=== PATIENT | female | born 1985 ===

== ENCOUNTER 2019-08-15 20:29 | Emergency (ER) | payer MEDICAID ==
--- NOTE | 2019-08-15 21:16 | Event Note ---
ED Screening Note ED Screening Note: fever chills- x 1 day sore throat headache cough hs rx allergy shots neuvaring yvette pmh neuropathy allergies neuro appnt 08/29 lmp 07/19 This initial assessment/diagnostic orders/clinical plan/treatment(s) is/are subject to change based on patients health status, clinical progression and re-assessment by fellow clinical providers in the ED. Further treatment and workup at subsequent clinical providers discretion. Patient/guardian urged not to elope from the ED as their condition may be serious if not clinically assessed and managed. Initial orders include: reeval in ACC HR 100-110 in triage
[2019-08-15] MEDS ORDERED: IBUPROFEN 800 MG TAB PO ONE (21:18)
[2019-08-15] MEDS ORDERED: ONDANSETRON 4 MG/2 ML INJ IV ONE (22:34)
[2019-08-15] MEDS ORDERED: MECLIZINE 25 MG TAB PO ONE (22:34)
[2019-08-15 22:49] LABS: HCG Qualitative,Urine Negative (Negative)
[2019-08-15 23:02] LABS: Bacteria,Urine 1+ /HPF (Negative); Bilirubin,Urine NEG (Negative); Blood,Urine MOD (Negative); Color,Urine Yellow (Yellow); Mucus,Urine 3+ /HPF; Protein,Urine <15 mg/dL mg/dL (Negative); Urobilinogen,Urine < 2.0 mg/dL (<2.0)
[2019-08-15 23:19] LABS: Basophils # (Auto) 0.1 K/mm3 (0.0-0.1); Basophils % (Auto) 0.9 % (0.0-1.8); Eosinophils % (Auto) 0.2 % (0.0-4.3); Hematocrit 37.5 % (30.3-42.9); Hemoglobin 12.9 gm/dl (10.1-14.3); Lymphocytes # (Auto) 1.7 K/mm3 (1.2-5.4); Lymphocytes % (Auto) 26.5 % (13.4-35.0); Mean Corpuscular HGB Conc 34 % (30-34); Mean Corpuscular Volume 86 fl (79-97); Monocytes # (Auto) 0.4 K/mm3 (0.0-0.8); Monocytes % (Auto) 6.4 % (0.0-7.3); Platelet Count 385 K/mm3 (140-440); Red Blood Count 4.36 M/mm3 (3.65-5.03); Red Cell Distribution Width 13.2 % (13.2-15.2)
--- NOTE | 2019-08-15 23:33 | XRay Report ---
CHEST 2 VIEWS, 08/15/2019 11:03 PM INDICATION: Cough COMPARISON: None FINDINGS: Support devices: None Heart: The cardiac silhouette is normal in size. Lungs/pleura: The lungs are well expanded and appear clear of airspace disease or significant pleural effusion. Additional findings: Evaluation of bony structures demonstrates no evidence of acute bony abnormality . IMPRESSION: 1. No evidence of acute cardiopulmonary process. Signer Name: Ritu Caal MD Signed: 08/15/2019 11:29 PM Workstation Name: [id number]
[2019-08-15 23:39] LABS: Alanine Aminotransferase 11 units/L (7-56); Albumin 4.1 g/dL (3.9-5); BUN/Creatinine Ratio 17; Blood Urea Nitrogen 10 mg/dL (7-17); Calcium 9.3 mg/dL (8.4-10.2); Hemolysis Index 0
[2019-08-15 23:46] LABS: Free T4 (Free Thyroxine) 1.19 ng/dL (0.76-1.46)
[2019-08-15 23:54] VITALS: BP 110/62
--- NOTE | 2019-08-16 00:03 | Emergency Department Report ---
ED Dizziness HPI - General Chief Complaint: Dizziness Stated Complaint: FEVER CHILLS DIZZY HEADACHE Time Seen by Provider: 08/15/19 21:12 Source: patient Mode of arrival: Ambulatory Limitations: No Limitations - History of Present Illness Initial Comments: 33-year-old female with a past medical history of neuropathy and previously diagnosed vertigo presents to the Hospital complaining of dizziness, headache, and fever. The last 4-5 days patient has had dizziness described as spinning sensation. Dizzy spells cause her to walk off balance and run into furniture. Positive associated nausea. Patient also having a constant occipital headache that changes in intensity according to hot or cold exposure. Today patient developed nausea, vomiting, fever of 100, and chills. Patient has had ongoing peripheral neuropathy symptoms in April and is scheduled to see a neurologist August 29. Patient did not take her meclizine when symptoms began and states that it feels different from her typical vertigo because usually her vertigo is more severe. She is also having fullness to the left ear for 5 days and noticed a bump behind her left ear. No sick contacts reported - Related Data Previous Rx's Medication Instructions Recorded Last Taken Type Benzonatate [Tessalon Perles] 100 mg PO Q8HR PRN #20 capsule 08/16/19 Unknown Rx Cefdinir 300 mg PO BID #14 capsule 08/16/19 Unknown Rx Ibuprofen [Motrin] 800 mg PO Q8HR PRN #30 tablet 08/16/19 Unknown Rx Meclizine [Antivert] 25 mg PO TID PRN #30 tablet 08/16/19 Unknown Rx Ondansetron [Zofran Odt] 4 mg PO Q8HR PRN #20 tab.rapdis 08/16/19 Unknown Rx Allergies Allergy/AdvReac Type Severity Reaction Status Date / Time No Known Allergies Allergy Unverified 08/15/19 21:18 ED Review of Systems ROS: Stated complaint: FEVER CHILLS DIZZY HEADACHE Other details as noted in HPI Comment: All other systems reviewed and negative ED Past Medical Hx - Past Medical History Previous Medical History?: No Additional medical history: Neuropathy - Surgical History Past Surgical History?: Yes Additional Surgical History: R-knee - Social History Smoking Status: Never Smoker Substance Use Type: None - Medications Home Medications: Home Medications Medication Instructions Recorded Confirmed Last Taken Type Benzonatate [Tessalon Perles] 100 mg PO Q8HR PRN #20 capsule 08/16/19 Unknown Rx Cefdinir 300 mg PO BID #14 capsule 08/16/19 Unknown Rx Ibuprofen [Motrin] 800 mg PO Q8HR PRN #30 tablet 08/16/19 Unknown Rx Meclizine [Antivert] 25 mg PO TID PRN #30 tablet 08/16/19 Unknown Rx Ondansetron [Zofran Odt] 4 mg PO Q8HR PRN #20 tab.rapdis 08/16/19 Unknown Rx ED Physical Exam - General Limitations: No Limitations - Other Other exam information: General: No limitations, patient is alert in no acute distress Head exam: Atraumatic, normocephalic Eyes exam: Normal appearance, pupils equal reactive to light, extraocular movements intact ENT: Moist mucous membrane, normal oropharynx without exudate, right ear canal normal, left TM with light reflex, tender small lymphadenopathy at periauricular node Neck exam: Normal inspection, full range of motion, no meningismus nontender Respiratory exam: Clear to auscultation bilateral, no wheezes, rales, crackles Cardiovascular: Normal rate and rhythm, normal heart sounds Abdomen: Soft, nondistended, and nontender, with normal bowel sounds, no rebound, or guarding Extremity: Full range of motion normal inspection no deformity Back: Normal Inspection, full range of motion, no tenderness Neurologic: Alert, oriented x3, cranial nerves intact, mild decreased sensation on the right arm compared to the left to light touch, equal sensation to bilateral legs. [id number] function intact strength 5/5 bilaterally Psychiatric: normal affect, normal mood Skin: Warm, dry, intact ED Course Vital Signs 08/15/19 08/15/19 08/15/19 20:36 22:14 22:15 Temperature 99.5 F Pulse Rate 111 H 103 H 97 H Pulse Rate [ Lying] Pulse Rate [ Sitting] Pulse Rate [ Standing] Respiratory 18 14 17 Rate Blood Pressure 123/75 104/70 104/70 Blood Pressure [Lying] Blood Pressure [Sitting] Blood Pressure [Standing] O2 Sat by Pulse 98 99 100 Oximetry 08/15/19 08/15/19 08/15/19 22:18 22:31 22:34 Temperature Pulse Rate 83 101 H Pulse Rate [ Lying] Pulse Rate [ Sitting] Pulse Rate [ Standing] Respiratory 20 15 Rate Blood Pressure 109/71 Blood Pressure [Lying] Blood Pressure [Sitting] Blood Pressure [Standing] O2 Sat by Pulse 100 Oximetry 08/15/19 08/15/19 22:45 23:53 Temperature Pulse Rate 87 Pulse Rate [ 92 H Lying] Pulse Rate [ 108 H Sitting] Pulse Rate [ 98 H Standing] Respiratory 15 Rate Blood Pressure 115/76 Blood Pressure 110/62 [Lying] Blood Pressure 112/68 [Sitting] Blood Pressure 108/59 [Standing] O2 Sat by Pulse 100 Oximetry - Reevaluation(s) Reevaluation #1: 08/16/19 01:17 pt feels better with ed tx ED Medical Decision Making - Lab Data Result diagrams: 08/15/19 22:43 08/15/19 22:43 Lab Results 08/15/19 08/15/19 08/15/19 Range/Units 22:26 22:43 22:43 WBC 6.5 (4.5-11.0) K/mm3 RBC 4.36 (3.65-5.03) M/mm3 Hgb 12.9 (10.1-14.3) gm/dl Hct 37.5 (30.3-42.9) % MCV 86 (79-97) fl MCH 30 (28-32) pg MCHC 34 (30-34) % RDW 13.2 (13.2-15.2) % Plt Count 385 (140-440) K/mm3 Lymph % (Auto) 26.5 (13.4-35.0) % [place] % (Auto) 6.4 (0.0-7.3) % Eos % (Auto) 0.2 (0.0-4.3) % Baso % (Auto) 0.9 (0.0-1.8) % Lymph # 1.7 (1.2-5.4) K/mm3 [place] # 0.4 (0.0-0.8) K/mm3 Eos # 0.0 (0.0-0.4) K/mm3 Baso # 0.1 (0.0-0.1) K/mm3 Seg Neutrophils % 66.0 (40.0-70.0) % Seg Neutrophils # 4.3 (1.8-7.7) K/mm3 Sodium 138 (137-145) mmol/L Potassium 4.4 (3.6-5.0) mmol/L Chloride 101.1 (98-107) mmol/L Carbon Dioxide 23 (22-30) mmol/L Anion Gap 18 mmol/L BUN 10 (7-17) mg/dL Creatinine 0.6 L (0.7-1.2) mg/dL Estimated GFR > 60 ml/min BUN/Creatinine Ratio 17 % Glucose 108 H (65-100) mg/dL Calcium 9.3 (8.4-10.2) mg/dL Magnesium (1.7-2.3) mg/dL Total Bilirubin 0.30 (0.1-1.2) mg/dL AST 16 (5-40) units/L ALT 11 (7-56) units/L Alkaline Phosphatase 66 (35-129) units/L Total Protein 7.5 (6.3-8.2) g/dL Albumin 4.1 (3.9-5) g/dL Albumin/Globulin Ratio 1.2 % TSH (0.270-4.200) mlU/mL Free T4 (0.76-1.46) ng/dL HCG, Qual (Negative) Urine Color Yellow (Yellow) Urine Turbidity Clear (Clear) Urine pH 6.0 (5.0-7.0) Ur Specific [place] 1.023 (1.003-1.030) Urine Protein <15 mg/dl (Negative) mg/dL Urine Glucose (UA) Neg (Negative) mg/dL Urine Ketones 20 (Negative) mg/dL Urine Blood Mod (Negative) Urine Nitrite Pos (Negative) Ur Reducing Substances Not Reportable Urine Bilirubin Neg (Negative) Urine Ictotest Not Reportable Urine Urobilinogen < 2.0 (<2.0) mg/dL Ur Leukocyte Esterase Neg (Negative) Urine WBC (Auto) 3.0 (0.0-6.0) /HPF Urine RBC (Auto) 5.0 (0.0-6.0) /HPF U Epithel Cells (Auto) 1.0 (0-13.0) /HPF Urine Bacteria (Auto) 1+ (Negative) /HPF Urine Mucus 3+ /HPF Urine HCG, Qual Negative (Negative) Influenza A (Rapid) (Negative) Influenza B (Rapid) (Negative) 08/15/19 08/15/19 08/15/19 Range/Units 22:43 22:50 22:50 WBC (4.5-11.0) K/mm3 RBC (3.65-5.03) M/mm3 Hgb (10.1-14.3) gm/dl Hct (30.3-42.9) % MCV (79-97) fl MCH (28-32) pg MCHC (30-34) % RDW (13.2-15.2) % Plt Count (140-440) K/mm3 Lymph % (Auto) (13.4-35.0) % [place] % (Auto) (0.0-7.3) % Eos % (Auto) (0.0-4.3) % Baso % (Auto) (0.0-1.8) % Lymph # (1.2-5.4) K/mm3 [place] # (0.0-0.8) K/mm3 Eos # (0.0-0.4) K/mm3 Baso # (0.0-0.1) K/mm3 Seg Neutrophils % (40.0-70.0) % Seg Neutrophils # (1.8-7.7) K/mm3 Sodium (137-145) mmol/L Potassium (3.6-5.0) mmol/L Chloride (98-107) mmol/L Carbon Dioxide (22-30) mmol/L Anion Gap mmol/L BUN (7-17) mg/dL Creatinine (0.7-1.2) mg/dL Estimated GFR ml/min BUN/Creatinine Ratio % Glucose (65-100) mg/dL Calcium (8.4-10.2) mg/dL Magnesium 1.90 (1.7-2.3) mg/dL Total Bilirubin (0.1-1.2) mg/dL AST (5-40) units/L ALT (7-56) units/L Alkaline Phosphatase (35-129) units/L Total Protein (6.3-8.2) g/dL Albumin (3.9-5) g/dL Albumin/Globulin Ratio % TSH 0.916 (0.270-4.200) mlU/mL Free T4 1.19 (0.76-1.46) ng/dL HCG, Qual Negative (Negative) Urine Color (Yellow) Urine Turbidity (Clear) Urine pH (5.0-7.0) Ur Specific [place] (1.003-1.030) Urine Protein (Negative) mg/dL Urine Glucose (UA) (Negative) mg/dL Urine Ketones (Negative) mg/dL Urine Blood (Negative) Urine Nitrite (Negative) Ur Reducing Substances Urine Bilirubin (Negative) Urine Ictotest Urine Urobilinogen (<2.0) mg/dL Ur Leukocyte Esterase (Negative) Urine WBC (Auto) (0.0-6.0) /HPF Urine RBC (Auto) (0.0-6.0) /HPF U Epithel Cells (Auto) (0-13.0) /HPF Urine Bacteria (Auto) (Negative) /HPF Urine Mucus /HPF Urine HCG, Qual (Negative) Influenza A (Rapid) (Negative) Influenza B (Rapid) (Negative) 08/15/19 Range/Units 23:16 WBC (4.5-11.0) K/mm3 RBC (3.65-5.03) M/mm3 Hgb (10.1-14.3) gm/dl Hct (30.3-42.9) % MCV (79-97) fl MCH (28-32) pg MCHC (30-34) % RDW (13.2-15.2) % Plt Count (140-440) K/mm3 Lymph % (Auto) (13.4-35.0) % [place] % (Auto) (0.0-7.3) % Eos % (Auto) (0.0-4.3) % Baso % (Auto) (0.0-1.8) % Lymph # (1.2-5.4) K/mm3 [place] # (0.0-0.8) K/mm3 Eos # (0.0-0.4) K/mm3 Baso # (0.0-0.1) K/mm3 Seg Neutrophils % (40.0-70.0) % Seg Neutrophils # (1.8-7.7) K/mm3 Sodium (137-145) mmol/L Potassium (3.6-5.0) mmol/L Chloride (98-107) mmol/L Carbon Dioxide (22-30) mmol/L Anion Gap mmol/L BUN (7-17) mg/dL Creatinine (0.7-1.2) mg/dL Estimated GFR ml/min BUN/Creatinine Ratio % Glucose (65-100) mg/dL Calcium (8.4-10.2) mg/dL Magnesium (1.7-2.3) mg/dL Total Bilirubin (0.1-1.2) mg/dL AST (5-40) units/L ALT (7-56) units/L Alkaline Phosphatase (35-129) units/L Total Protein (6.3-8.2) g/dL Albumin (3.9-5) g/dL Albumin/Globulin Ratio % TSH (0.270-4.200) mlU/mL Free T4 (0.76-1.46) ng/dL HCG, Qual (Negative) Urine Color (Yellow) Urine Turbidity (Clear) Urine pH (5.0-7.0) Ur Specific [place] (1.003-1.030) Urine Protein (Negative) mg/dL Urine Glucose (UA) (Negative) mg/dL Urine Ketones (Negative) mg/dL Urine Blood (Negative) Urine Nitrite (Negative) Ur Reducing Substances Urine Bilirubin (Negative) Urine Ictotest Urine Urobilinogen (<2.0) mg/dL Ur Leukocyte Esterase (Negative) Urine WBC (Auto) (0.0-6.0) /HPF Urine RBC (Auto) (0.0-6.0) /HPF U Epithel Cells (Auto) (0-13.0) /HPF Urine Bacteria (Auto) (Negative) /HPF Urine Mucus /HPF Urine HCG, Qual (Negative) Influenza A (Rapid) Negative (Negative) Influenza B (Rapid) Negative (Negative) - Radiology Data Radiology results: report reviewed ct head: naf cxr pa/lat: naf - Medical Decision Making sx improved after meclizine, Zofran, ibuprofen, and 1 L normal saline Previous history of vertigo in ongoing neuropathy with outpatient neurology appointment scheduled CT head and labs unremarkable. Patient be placed on antibiotics to cover ear infection, lymphadenitis, and UTI as well as meds for symptomatic treatment - Differential Diagnosis vertigo, central versus peripheral, flu, viral syndrome, otitis Critical Care Time: No Critical care attestation.: If time is entered above; I have spent that time in minutes in the direct care of this critically ill patient, excluding procedure time. ED Disposition Clinical Impression: Vertigo, Viral illness, UTI (urinary tract infection) Disposition: TO HOME OR SELFCARE Is pt being admited?: No Does the pt Need Aspirin: No Condition: Stable Instructions: Vertigo (ED), Viral Syndrome (ED), Urinary Tract Infection in Women (ED) Additional Instructions: Take the medication as prescribed. Follow up with you doctor or with the doctor provided. Return if symptoms worsen as indicated by your discharge instructions. Prescriptions: Meclizine [Antivert] 25 mg PO TID PRN #30 tablet PRN Reason: Vertigo Cefdinir 300 mg PO BID #14 capsule Ibuprofen [Motrin] 800 mg PO Q8HR PRN #30 tablet PRN Reason: Fever >101 Benzonatate [Tessalon Perles] 100 mg PO Q8HR PRN #20 capsule PRN Reason: Cough Ondansetron [Zofran Odt] 4 mg PO Q8HR PRN #20 tab.rapdis PRN Reason: Nausea And Vomiting Referrals: EMELY FLORES [Other] - 3-5 Days Time of Disposition: 01:21
--- NOTE | 2019-08-16 00:36 | Cat Scan Report ---
Examination: CT of the head without contrast Clinical information: Headache. Comparison: None Technical: Multiple axial CT images of the head were obtained without intravenous contrast. Sagittal and coronal reformats were obtained. All CTs at this facility utilize dose reduction techniques inc luding automated exposure control, iterative reconstruction and weight based dosing when appropriate to reduce patient radiation dose to as low as reasonable achievable. Findings: There is no CT evidence of acute intracranial hemorrhage or large territorial infarct. The ventricular system is normal in size. No extra-axial fluid collection is identified. Evaluation of bony structures demonstrates no evidence of acute bony abnormality. Impression: 1. No CT evidence of acute intracranial process. Signer Name: Ritu Caal MD Signed: 08/16/2019 12:32 AM Workstation Name: [id number]
== END 2019-08-16 01:34 | disposition home or self-care (01) ==
LOC: ED 20:29
DX: R42 Dizziness and giddiness (principal); B34.9 Viral infection, unspecified; N39.0 Urinary tract infection, site not specified; Z98.890 Other specified postprocedural states; Z79.1 Long term (current) use of non-steroidal anti-inflammatories (NSAID); Z79.899 Other long term (current) drug therapy
CPT/HCPCS: 36415; 70450; 71046; 80053; 81001; 81025; 83735; 84439; 84443; 84703; 85025; 87400; 96374; 99284; J2405